=== PATIENT | male | born 1995 | race Two or more races ===

== ENCOUNTER 2018-10-10 08:32 | Emergency (ER) | payer OTHER ==
--- NOTE | 2018-10-10 08:39 | EDPHY ---
H & P Time Seen by Provider: 10/10/18 08:35 HPI/ROS: Chief Complaint: Facial injury HPI: 23-year-old male got struck in the face by a 2 x 4 at work. Patient step down on the end of the board which was not nail down and swelling up and struck a minute side of face. Did not have a loss of conscious. He is complaining of pain of his left upper lip. Does not feel his bite is malaligned. Is complaining some mild dizziness. No nausea or vomiting. No headache. No neck pain. No numbness or tingling. He is up-to-date in his tetanus. ROS: 10 systems were reviewed and were negative except those elements noted in the HPI. PMH: Denies Social History: No smoking, no alcohol, no recreational drug use Family History: non-contributory Physical Exam: Gen: Awake, Alert, Airway Intact HEENT: Head: Atraumatic Eyes: PERRLA, EOMI Nose: No epistaxis Mouth: Normal dentition, no mandibular maxillary tenderness. Patient has a laceration of his left lip, approximately 1.5 cm which does cross the vermilion border. It is not through and through. Face: No deformity Neck: non-tender, no stepoff, Full ROM without pain Chest: non-tender, lungs CTA Heart: normal heart tones Abd: soft, non-tender, atraumatic Pelvis: non-tender, stable to AP and Lateral compression Back: atraumatic, no midline tenderness Ext: atramatic, full ROM Skin: no rash Neuro: CN II-XII intact, Strength 5/5 in all extremities, sensation intact in all extremities Constitutional: Initial Vital Signs Temperature (C) 36.9 C 10/10/18 08:38 Heart Rate 67 10/10/18 08:38 Respiratory Rate 16 10/10/18 08:38 Blood Pressure 150/91 H 10/10/18 08:38 O2 Sat (%) 98 10/10/18 08:38 O2 Delivery Mode Room Air Allergies/Adverse Reactions: capsaicin Allergy (Verified 10/10/18 08:38) Home Medications: Medication Instructions Recorded NK [No Known Home Meds] 10/10/18 Medical Decision Making Procedures: Procedure: Laceration repair. Verbal consent was obtained from the patient. The 1 cm complex lip laceration crossing the vermilion border was anesthetized in the usual fashion. The wound was irrigated, draped and explored to its base with a gloved finger. There were no deep structures involved. No tendon injury was identified. The wound was repaired with 4, 6-0 Ethilon simple interrupted sutures. The vermilion border was aligned with the 1st stitch with excellent alignment. The wound repair was complicated. The procedure was performed by myself. Departure - Departure Disposition: Home, Routine, Self-Care Clinical Impression: Lip laceration, Head injury Condition: Good Instructions: Care For Your Stitches (ED), Head Injury (ED), Facial Laceration (ED) Additional Instructions: Sutures need to be removed in 5 days. You may return to the emergency department and we will do this for you. Follow up with workman's Comp in 3-4 days for further evaluation. Return to the emergency department for worsening headache, nausea vomiting, confusion, or any other concerns. Referrals: Work Comp Referral [facility] [Outside] - As per Instructions Stand Alone Forms: Work Comp Follow Up
[2018-10-10 09:23] VITALS: BP 130/82
== END 2018-10-10 09:18 | disposition home or self-care (01) ==
LOC: CED 08:32
PROC: 0CQ0XZZ Repair Upper Lip, External Approach (ICD-10-PCS; principal; 2018-10-10)
DX: S01.511A Laceration without foreign body of lip, initial encounter (principal); W20.8XXA Other cause of strike by thrown, projected or falling object, initial encounter; Y99.0 Civilian activity done for income or pay
CPT/HCPCS: 99282-ER